=== PATIENT | female | born 1990 | race Caucasian/White ===

== ENCOUNTER 2020-02-20 09:33 | Emergency (ER) | payer OTHER ==
[2020-02-20 09:42] VITALS: RESP 18
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
--- NOTE | 2020-02-20 10:26 | XR ---
Shoulder HISTORY: Trauma and pain 3 views of left shoulder There is slight superior displacement of the distal clavicle in relation to the acromion. Bone minera lization and joint spaces are otherwise maintained. Left lung apex as visualized is normal. IMPRESSION: Correlate for acromial clavicular separation. No acute fracture.
[2020-02-20] MEDS ORDERED: ACET/COD 300 MG/30 MG STARTER PACK 6 TAB BTL PO STA (10:28)
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
[2020-02-20 11:36] VITALS: BP 122/74; PULSE 74; TEMP 98.3
== END 2020-02-20 11:36 | disposition home or self-care (01) ==
LOC: EC 09:33
DX: S43.102A Unspecified dislocation of left acromioclavicular joint, initial encounter (principal); S10.93XA Contusion of unspecified part of neck, initial encounter; F17.200 Nicotine dependence, unspecified, uncomplicated; Z91.048 Other nonmedicinal substance allergy status; Y04.8XXA Assault by other bodily force, initial encounter
CPT/HCPCS: 70450; 71046; 72125; 99284